=== PATIENT | female | born 1945 | race Caucasian/White ===

== ENCOUNTER 2017-04-05 00:21 | Observation (INO) | payer MEDICARE, OTHER ==
[~2017-04-05] VITALS: Ht 160 cm; Wt 103.2 kg
[~2017-04-05 00:21] MED LIST: FURO40TA PO; METO25TA3 PO; POTA8CAP PO; PREG25 PO
[2017-04-05 03:30] VITALS: BP 132/80; PULSE 75; RESP 22; TEMP 98.8; O2SAT 97
[2017-04-05] MEDS ORDERED: ONDANSETRON HCL 4 MG/2 ML VIAL IV PUSH PRN (04:30)
[2017-04-05] MEDS ORDERED: ACETAMINOPHEN 500 MG CPLT PO PRN (04:30)
[2017-04-05 04:47] VITALS: PULSE 85
[2017-04-05 07:25] VITALS: BP 180/81; PULSE 77; RESP 20; TEMP 98.3; O2SAT 96
--- NOTE | 2017-04-05 08:04 | HHI.HP ---
HPI Primary Care Physician Everette Solis M.D. Chief Complaint Left shoulder pain History of Present Illness This is a 71-year-old female that presents to the [place] ED to be evaluated for left shoulder pain. She states she always has left shoulder pain however it was worsened yesterday when she went to push the trunk of her vehicle down after going grocery shopping. It immediately worsened. States it is a severe pain. Went home and continue to worsen. States she can barely move the arm. That presented her to the ED. patient states she has had essentially diffuse joint pains since having cervical fusion surgery years ago. States she is on disability secondary to it. Patient initially denied chest discomforts and was stating that she went to the ED for her shoulder discomfort. However after further discussing with the patient that she was transported to this facility for further cardiac evaluation and for VQ scan she then stated "I had chest pain for 20 years." States which she had was no different than it has been over 20 years. States usually gets a discomfort in her chest and points to the epigastric region. She states that happens when she either is upset or after eating. Yesterday began after eating a cheeseburger around 1:30. It did worsen yesterday afternoon as she became more upset over the shoulder discomfort. Denies shortness of breath but was feeling nauseous. Also had a sour taste in her mouth. Denied diaphoresis. Upon further discussion, states that she had a cardiac catheterization August 2016 at [facility] revealing a blockage in 1 or 2 of her blood vessels however no intervention occurred. States she does not know why. She had a outpatient chemical stress test at [facility] ordered by her PCP. She does not know the results but recalls that soon afterwards she was referred to the supplemental manager that did the cardiac catheterization. She has not followed with a supplemental manager since. States that amlodipine was added to her medication list. While in the ED, a d-dimer was obtained and was elevated. Patient was then admitted to the chest pain center. Review of Systems General: Patient denies fevers, chills recent, and recent travel HEENT: Patient denies headache, sore throat, difficulty swallowing. Cardiovascular: Has the chest discomfort as mentioned above and points to epigastric region to indicate where the discomfort is. Denies sensation of heart beating rapidly or irregularly. No syncope. Denies diaphoresis. Respiratory: Denies shortness of breath or inspirational chest discomfort. Denies coughing wheezing or hemoptysis. GI: She was nauseous. Points to epigastric region to indicate location of her discomfort. Also complains of a sour taste in her mouth which is quite common and was also there last evening.. Patient denies vomiting, diarrhea, abdominal pain however points to epigastric region to indicate where her chest pain has, and denies bloody stools. Musculoskeletal: Chronic generalized joint pain, her presenting complaint in the ED last evening was left shoulder pain that was worsened with the slightest movement. Patient denies edema. Denies calf pain or edema. Neurovascular: Patient denies numbness, tingling, weakness in extremities. Denies headache. Endocrine: Denies polyuria and polydipsia. Hematologic: Denies easy bruising. Skin: Denies rash or itching. Past Family Social History Allergies: Coded Allergies: gabapentin (Verified Allergy, Severe, N/V/D, 04/04/17) iodine (Verified Allergy, Severe, NAUSEA/VOMITING, 04/05/17) Past Medical History Hypertension, questionable coronary artery disease, neuropathy. Denies diabetes , hyperlipidemia. Past Surgical History Neck surgery. Tonsillectomy. 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 Reported Medications Reported Meds & Active Scripts Active Reported Lyrica (Pregabalin) 25 Mg Cap 0 PO BID Potassium Chloride ER (Potassium Chloride) 8 Meq Cap 0 PO BID Furosemide 40 Mg Tab 40 Mg PO DAILY Metoprolol Tartrate 25 Mg Tab 0 PO BID Active Ordered Medications Current Medications Medications (Trade) Dose Ordered Sig/Cristopher Route Start Time Stop Time Status Last Admin (Tylenol) 500 mg Q4H PRN PO 04/05/17 04:30 04/05/17 05:01 (Zofran Inj) 4 mg Q6H PRN IV PUSH 04/05/17 04:30 Family History States her father at age 77 of a myocardial infarction. States that her mother is still alive at 95 without known cardiac disease. She states that a sister has an anomalous coronary artery. Social History Quit smoking 20 years ago prior to that smoked one pack of cigars daily for 20 years. Physical Exam Vital Signs Vital Signs Date Time Temp Pulse Resp B/P (MAP) Pulse Ox O2 Delivery O2 Flow Rate FiO2 04/05/17 07:25 98.3 77 20 180/81 (114) 96 2/18/18 06:05 20 04/05/17 03:30 98.8 75 22 132/80 (97) 97 Physical Exam GENERAL: This is a well-nourished, well-developed patient, in no apparent distress. Patient speaks in clear complete sentences. Patient is pleasant. Patient is obese at 103 kg. HEENT: Head is atraumatic and normocephalic. Neck is supple without lymphadenopathy and trachea is midline. No JVD or carotid bruits. CARDIOVASCULAR: Regular rate and rhythm without murmurs, gallops, or rubs. RESPIRATORY: Clear to auscultation. Breath sounds equal bilaterally. No wheezes , rales, or rhonchi. Chest wall is nontender. No use of accessory muscles. GASTROINTESTINAL: Abdomen is nontender, nondistended. Abdomen soft. No obvious pulsatile mass or bruit. No CVA tenderness. Strong femoral pulses bilaterally. Normal bowel sounds in all quadrants. MUSCULOSKELETAL: Patient has limited mobility in her left shoulder/arm. Minimal abduction as well as internal and external rotation. 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 Patient is right moving upper and bilateral lower extremities freely. No calf tenderness or edema, no Homans sign. Strong pulses in upper and lower extremities. NEUROLOGICAL: Patient is alert and oriented. Cranial nerves 2-12 are grossly intact. No focal deficits and speech is clear. SKIN: No rash and turgor is normal. Laboratory Laboratory Tests Test 04/05/17 06:00 Imaging X-ray of the left shoulder has been read by radiologist and has nothing acute. There is osteoarthritis present. Chest x-ray read by radiologist as mild cardiomegaly. Nothing acute. Course Vital Signs EKGs are sinus rhythm without significant ST segment depressions or elevations. Caprini VTE Risk Assessment Caprini VTE Risk Assessment: Mod/High Risk (score >= 2) Caprini Risk Assessment Model Point Value = 1 Point Value = 2 Point Value = 3 Point Value = 5 Age 41-60 Minor surgery BMI > 25 kg/m2 Swollen legs Varicose veins or History of unexplained or recurrent spontaneous Oral contraceptives or hormone replacement Sepsis (< 1 month) Serious lung disease, including pneumonia (< 1 month) Abnormal pulmonary function Acute myocardial infarction Congestive heart failure (< 1 month) History of inflammatory bowel disease Medical patient at bed rest Age 61-74 Arthroscopic surgery Major open surgery (> 45 min) Laparoscopic surgery (> 45 min) Malignancy Confined to bed (> 72 hours) Immobilizing plaster cast Central venous access Age >= 75 History of VTE Family history of VTE Factor V Leiden Prothrombin [id number] Lupus anticoagulant Anticardiolipin antibodies Elevated serum homocysteine Heparin-induced thrombocytopenia Other congenital or acquired thrombophilia Stroke (< 1 month) Elective arthroplasty Hip, pelvis, or leg fracture Acute spinal cord injury (< 1 month) Prophylaxis Regimen Total Risk Factor Score Risk Level Prophylaxis Regimen 0-1 Low Early ambulation 2 Moderate Order ONE of the following: *Sequential Compression Device (SCD) *Heparin 5000 units SQ BID 3-4 Higher Order ONE of the following medications: *Heparin 5000 units SQ TID *Enoxaparin/Lovenox 40 mg SQ daily (WT < 150 kg, CrCl > 30 mL/min) *Enoxaparin/Lovenox 30 mg SQ daily (WT < 150 kg, CrCl > 10-29 mL/min) *Enoxaparin/Lovenox 30 mg SQ BID (WT < 150 kg, CrCl > 30 mL/min) AND/OR *Sequential Compression Device (SCD) 5 or more Highest Order ONE of the following medications: *Heparin 5000 units SQ TID (Preferred with Epidurals) *Enoxaparin/Lovenox 40 mg SQ daily (WT < 150 kg, CrCl > 30 mL/min) *Enoxaparin/Lovenox 30 mg SQ daily (WT < 150 kg, CrCl > 10-29 mL/min) *Enoxaparin/Lovenox 30 mg SQ BID (WT < 150 kg, CrCl > 30 mL/min) AND *Sequential Compression Device (SCD) Assessment and Plan Assessment and Plan * Left shoulder pain: Patient has chronic left shoulder pain. This is worsened last evening when she went to push her trunk of her vehicle done after shopping. She was transferred to the chest pain center for further evaluation. She has had serial cardiac enzymes and EKGs for ruling out purposes. Her symptoms do not appear to be related to a pulmonary embolus however a d-dimer was obtained in the [place] ED and will need VQ scan. Further plan of pending the results of this scan. Patient will be evaluated by Dr. Whyte of cardiology in the chest pain center to determine if any further cardiac testing is needed. She does complain of chest pain when pointing to her epigastric region and states that she has had this very regularly for over 20 years. We are awaiting records of her cardiac catheterization. * Hypertension: Continue current medication. * Neuropathy: Continue her medications. VQ scan was negative for PE. Patient was seen by Dr. Whyte cardiology and the chest pain center. She is complaining of left shoulder discomfort. We were able to obtain her cardiac catheterization from last year which revealed mild to moderate three-vessel disease. Medical management was started. There will be no further cardiac testing at this visit. She will be instructed to follow- up with her PCP. She should discuss cholesterol medication with her PCP. Return to ED for interval issues. Patient is stable at this time. She is agreeable to this plan. Sumit Her Apr 05, 2017 08:04
[2017-04-05] MEDS ORDERED: AMLO2.5T PO (08:10)
[2017-04-05] MEDS ORDERED: KETOROLAC TROMETHAMINE 30 MG/ML (IVP) VIAL IVP ONE (08:15)
[2017-04-05] MEDS ORDERED: AMLO5TAB2 PO (08:51)
[2017-04-05 09:00] VITALS: PULSE 77
[2017-04-05] MEDS ORDERED: PREGABALIN 25 MG CAP PO SCH (09:00)
[2017-04-05] MEDS ORDERED: METOPROLOL TARTRATE 25 MG TAB PO SCH (09:00)
[2017-04-05] MEDS ORDERED: POTASSIUM CHLORIDE 8 MEQ CAP PO SCH (09:00)
[2017-04-05] MEDS ORDERED: FUROSEMIDE 40 MG TAB PO SCH (09:00)
[2017-04-05] MEDS ORDERED: PANTOPRAZOLE SOD 40 MG DELAYED RELEASE TAB PO SCH (10:15)
[2017-04-05] MEDS ORDERED: amLODIPine BESYLATE 5 MG TAB PO SCH (10:15)
--- NOTE | 2017-04-05 10:18 | RADRPT ---
EXAM DATE/TIME: 04/05/2017 09:39 [facility] COMPARISON: CHEST SINGLE AP, April 04, 2017, 22:46. INDICATIONS : Dyspnea with chest pain for one day. DOSE: 8.7 mCi Tc99m MAA IV 0.78 mCi Tc99m DTPA aerosol MEDICAL HISTORY : Hypertension. SURGICAL HISTORY : Coronary artery stent. ENCOUNTER: Initial ACUITY: 1 day PAIN SCALE: 5/10 LOCATION: Left chest TECHNIQUE: Following five minutes of tidal breathing of DTPA aerosol, planar images of the lungs were performed in eight projections. The patient was then injected with MAA, and eight-view perfusion scan was perf ormed. FINDINGS: There is a homogeneous pattern of aerosol delivery to the periphery of both lungs. No focal ventilat ory defects are seen. The perfusion lung scan demonstrates a homogenous pattern of uptake in both lungs. No segmental or s ubsegmental defects are seen. CONCLUSION: Low probability pulmonary embolism. Kameron Link MD on April 05, 2017 at 10:15 Board Certified Radiologist. This report was verified electronically.
--- NOTE | 2017-04-05 11:40 | HHI.DCPOC ---
Discharge Care Plan Diagnosis: (1) Shoulder pain (2) Neuropathy (3) Chest pain, atypical (4) Hypertension (5) CAD (coronary artery disease) Goals to Promote Your Health DISCUSS TAKING CHOLESTEROL(STATIN) MEDICATIONS WITH YOUR PRIMARY CARE PHYSICIAN. * To prevent worsening of your condition and complications * To maintain your health at the optimal level Directions to Meet Your Goals Take your medications as prescribed Follow your dietary instruction Follow activity as directed Keep your appointments as scheduled Take your immunizations and boosters as scheduled If your symptoms worsen call your PCP, if no PCP go to Urgent Care Center or Emergency Room Smoking is Dangerous to Your Health. Avoid second hand smoke Call the 24-hour hour crisis hotline for domestic abuse at Sumit Her Apr 05, 2017 11:40
--- NOTE | 2017-04-05 13:17 | EKG ---
Date Performed: 04/05/2017 Time Performed: 04:44:38 PTAGE: 71 years EKG: Sinus rhythm MODERATE VOLTAGE CRITERIA FOR LVH, CONSIDER NORMAL VARIANT BORDERLINE ECG PREVIOUS TRACING : 04/05/2017 04.44 Since previous tracing, no significant change noted DOCTOR: Zion Whyte Interpretating Date/Time 04/05/2017 13:16:21
[2017-04-06] MEDS ORDERED: CYCL10TA PO (21:03)
[2017-04-06] MEDS ORDERED: IBUP1TAB5 PO (21:03)
[2017-04-06] MEDS ORDERED: MEDR4PAK PO (21:03)
== END 2017-04-05 15:17 | disposition home or self-care (01) ==
LOC: NEDDLT 02:49 → NEPFCDU 02:59
DX: M25.512 Pain in left shoulder (principal); G89.29 Other chronic pain; R06.00 Dyspnea, unspecified; I25.10 Atherosclerotic heart disease of native coronary artery without angina pectoris; I10 Essential (primary) hypertension; G62.9 Polyneuropathy, unspecified; R11.0 Nausea; Z79.899 Other long term (current) drug therapy; Z87.891 Personal history of nicotine dependence; Z95.5 Presence of coronary angioplasty implant and graft; Z98.1 Arthrodesis status
CPT/HCPCS: 78582; 93005; 96374; A9540; A9567; G0378; J1885